=== PATIENT | female | born 1950 | race Caucasian/White ===

== ENCOUNTER → 2016-06-23 | Outpatient (CLI) | payer SELFPAY ==
--- NOTE | 2016-06-23 14:36 | CT ---
HISTORY: Screening, positive family history Cardiac calcium scoring. Technique: Multiple axial images of the chest were obtained on a [address] from the aortic arch to the base of the heart with noncontrast prospective gating. AEC was utilized. Findings: A total calcium score of 173 is observed. The patient is between the 75th and 90th percentile for a ge and sex with definite, at least moderate, atherosclerotic plaque present. Mild Coronary narrowin gs highly likely with significant narrowings possible. Surrounding soft tissues are unremarkable. IMPRESSION: Definite least moderate atherosclerotic plaque. Reported By:
== END ==
LOC: RAD 13:49
PROVIDERS: ATTEND Nurse Practitioner Family
DX: Z13.6 Encounter for screening for cardiovascular disorders (principal)